=== PATIENT | female | born 1995 | race Native Hawaiian/Other Pacific Islander ===

== ENCOUNTER 2020-08-29 18:10 | Observation (INO) | payer OTHER, SELFPAY ==
[~2020-08-29] VITALS: Ht 162.6 cm; Wt 91.6 kg
[2020-08-29 18:27] VITALS: BP 117/68
[2020-08-29] MEDS ORDERED: PNV91TAB8 PO (18:47)
[2020-08-29] MEDS ORDERED: ONDANSETRON 4 MG/2 ML VIAL IM/IVP PRN (19:05)
[2020-08-29] MEDS ORDERED: MORPHINE SULFATE 5 MG/ML VIAL IM PRN (19:05)
[2020-08-29] MEDS ORDERED: MORPHINE SULFATE 10 MG/ML VIAL ONE (19:22)
[2020-08-29 19:47] VITALS: BP 119/72
[2020-08-29 20:34] LABS: APPEARANCE,URINE CLEAR (CLEAR); BILIRUBIN,URINE NEGATIVE (NEGATIVE); BLOOD, URINE 1+ (NEGATIVE); COLOR,URINE YELLOW (YELLOW); LEUKOCYTE ESTERASE ,URINE NEGATIVE (NEGATIVE); NITRITE, URINE NEGATIVE (NEGATIVE); PH,URINE 5.5 (5.0-9.0); UGLUCOSE NEGATIVE (NEGATIVE)
[2020-08-29 20:41] LABS: WBC,URINE 0-5 /HPF (0-5)
[2020-08-29] MEDS ORDERED: cefTRIAXone 1,000 MG in LIDOCAINE MPF 1% 2.1 ML IM ONE (21:35)
[2020-08-29] MEDS ORDERED: cefTRIAXone 1,000 MG VIAL ONE (21:40)
[2020-08-29] MEDS ORDERED: LIDOCAINE 1% 500 MG/50 ML VIAL ONE (21:41)
== END 2020-08-29 20:10 | disposition home or self-care (01) ==
LOC: MLD 18:10
PROVIDERS: ADMIT Obstetrics & Gynecology; ATTEND Obstetrics & Gynecology
DX: O26.893 Other specified pregnancy related conditions, third trimester (principal); R10.2 Pelvic and perineal pain; Z20.822 Contact with and (suspected) exposure to COVID-19; O99.891 Other specified diseases and conditions complicating pregnancy; M54.5 Low back pain; Z3A.34 34 weeks gestation of pregnancy
CPT/HCPCS: 76815; 81001; 87086; 87426; 96372; G0378; J0696; J2001; J2270; J2405; 59025